=== PATIENT | female | born 2000 | race Caucasian/White ===

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

== ENCOUNTER 2019-01-25 08:20 | Emergency (ER) | payer OTHER ==
[~2019-01-25] VITALS: Ht 152.4 cm; Wt 47.7 kg
[2019-01-25 08:32] VITALS: Ht 152.4 cm; Wt 47.7 kg
[2019-01-25] MEDS ORDERED: KEPPRA500 MG PO (08:36)
[2019-01-25] MEDS ORDERED: REGLAN INJ10 MG/2 ML (08:36)
[2019-01-25] MEDS ORDERED: PRILOSEC (08:37)
[2019-01-25] MEDS ORDERED: MYCOSTATIN 15 G15 GM TOPICAL (08:37)
[2019-01-25] MEDS ORDERED: SINGULAIR5 MG PO (08:37)
[2019-01-25] MEDS ORDERED: AUGMENTIN ES-6125 ML (08:37)
[2019-01-25] MEDS ORDERED: SCOPOLAMINE1 EACH TRANSDERM (08:38)
[2019-01-25] MEDS ORDERED: ALBUTEROL0.63 MG/3 INH (08:38)
[2019-01-25 09:02] VITALS: BP 106/62
== END 2019-01-25 09:02 | disposition home or self-care (01) ==
LOC: D.ER 08:20
DX: K94.23 Gastrostomy malfunction (principal)